=== PATIENT | female | born 1955 | race Caucasian/White ===

== ENCOUNTER 2022-09-15 07:15 | Day surgery (SDC) | payer MEDICARE, BC ==
[~2022-09-15] VITALS: Ht 160 cm; Wt 51.0 kg
[2022-09-15] MEDS ORDERED: EUTHYROX50 MCG PO (07:40)
[2022-09-15] MEDS ORDERED: FENO145 (07:41)
[2022-09-15] MEDS ORDERED: SYMBICORT 160-4.6 GM INH (07:41)
[2022-09-15] MEDS ORDERED: LOSA50 PO (07:41)
[2022-09-15] MEDS ORDERED: FLUO10 PO (07:42)
--- NOTE | 2022-09-15 08:18 | NUR ---
09/15/22 0818 Yasmin Burton TETRACAINE DROP PLACED IN RIGHT EYE AT 0740. PLEDGET PLACED AT 0741, PT TOLERATED PLACEMENT WELL. CALL LIGHT IN REACH.
--- NOTE | 2022-09-15 09:11 | NUR ---
09/15/22 0911 JOLANTA COLINDRES PT DENIES PAIN AND DISCOMFORT.
== END 2022-09-15 09:27 | disposition home or self-care (01) ==
LOC: ORSCSDS 07:15
PROVIDERS: Student in an Organized Health Care Education/Training Program
PROC: 08DJ3ZZ Extraction of Right Lens, Percutaneous Approach (ICD-10-PCS; principal; 2022-09-15 08:30)
DX: H25.13 Age-related nuclear cataract, bilateral (principal); J45.909 Unspecified asthma, uncomplicated; I10 Essential (primary) hypertension; E07.9 Disorder of thyroid, unspecified; Z79.899 Other long term (current) drug therapy
CPT/HCPCS: J2250; J3010; J7040; V2632

== ENCOUNTER 2022-09-29 07:44 | Day surgery (SDC) | payer MEDICARE, BC ==
[~2022-09-29] VITALS: Ht 160 cm; Wt 50.7 kg
[~2022-09-29 07:44] MED LIST: EUTHYROX50 MCG PO; FENO145; FLUO10 PO; LOSA50 PO; SYMBICORT 160-4.6 GM INH
--- NOTE | 2022-09-29 08:28 | NUR ---
09/29/22 0828 Denia Chen IN AT 0820, TRISTIAN IN AT 0821
[2022-09-29 09:47] VITALS: BP 138/73
== END 2022-09-29 10:10 | disposition home or self-care (01) ==
LOC: ORSCSDS 07:44
PROVIDERS: Student in an Organized Health Care Education/Training Program
PROC: 08DK3ZZ Extraction of Left Lens, Percutaneous Approach (ICD-10-PCS; principal; 2022-09-29 09:00)
DX: H25.12 Age-related nuclear cataract, left eye (principal); Z96.1 Presence of intraocular lens; I10 Essential (primary) hypertension; J45.909 Unspecified asthma, uncomplicated; E07.9 Disorder of thyroid, unspecified; Z79.899 Other long term (current) drug therapy
CPT/HCPCS: J2250; J3010; J7040; V2632